=== PATIENT | male | born 1940 | race Caucasian/White ===

== ENCOUNTER 2017-06-15 17:09 | Emergency (ER) | payer MEDICARE, MEDICAID ==
[2017-06-15 17:47] VITALS: BP 103/78
--- NOTE | 2017-06-15 18:32 | UC ---
Skin Complaint HPI - HPI Summary HPI Summary: PT NOTICED AN IRRITATED SKIN LESION LEFT SHOULDER TODAY. WONDERS IF IT IS A TICK. FEEL WELL. NO FEVER, SOMERS, MUSCLE/JOINT PAIN. - History of Current Complaint Chief Complaint: UCSkin Time Seen by Provider: 06/15/17 18:17 Stated Complaint: TICK BITE Hx Obtained From: Patient Onset/Duration: Sudden Onset, Lasting Hours, Still Present Timing: Constant Onset Severity: Mild Current Severity: None Pain Intensity: 0 Pain Scale Used: 0-10 Numeric Location: Discrete - LEFT SHOULDER Character: Raised Aggravating: Touch Alleviating: Nothing Associated Signs & Symptoms: Positive: Negative - Allergy/Home Medications Allergies/Adverse Reactions: Allergies Allergy/AdvReac Type Severity Reaction Status Date / Time Prednisone AdvReac GI Upset Verified 06/15/17 17:36 Home Medications: Home Medications Misc. Devices [Nasal [place]urel Bottle 20Ml] 06/15/17 [History] Stomach Med 06/15/17 [History] Umeclidin/Vilant 62.5 MDI(NF) [ANORO 62.5/25 Ellipta DEVICE (NF)] 06/15/17 [ History] Review of Systems Constitutional: Negative Skin: Other - IRRITATED SPOT LEFT SHOULDER ENT: Negative Respiratory: Negative Cardiovascular: Negative Gastrointestinal: Negative All Other Systems Reviewed And Are Negative: Yes PMH/Surg Hx/FS Hx/Imm Hx Respiratory History: COPD Other Cancer History: LYMPHOMA - Surgical History Surgical History: Yes Surgery Procedure, Year, and Place: biopsy of throat and right bronch.,lymph nodes. T&A. colonoscopy ~3 months ago - Family History Family History: denies cardio vascular issues in family lineage - Social History Alcohol Use: None Substance Use Type: None Smoking Status (MU): Former Smoker Type: Cigarettes Amount Used/How Often: quite 40 yrs ago Length of Time of Smoking/Using Tobacco: 13 YRS Have You Smoked in the Last Year: No When Did the Patient Quit Smoking/Using Tobacco: 1970 Physical Exam Triage Information Reviewed: Yes Appearance: Well-Appearing, No Pain Distress, Well-Nourished Vital Signs: Initial Vital Signs Temp 98.2 F 06/15/17 17:39 Pulse 98 06/15/17 17:39 Resp 18 06/15/17 17:39 BP 103/78 06/15/17 17:39 Pulse Ox 92 06/15/17 17:39 Vital Signs Reviewed: Yes Eyes: Positive: Conjunctiva Clear ENT: Positive: Hearing grossly normal Neck: Positive: Supple Respiratory: Positive: No respiratory distress, No accessory muscle use Cardiovascular: Positive: Pulses Normal Abdomen Description: Positive: Soft Musculoskeletal: Positive: No Edema Neurological: Positive: Alert Psychological: Positive: Age Appropriate Behavior Skin: Positive: Other - INFLAMED ACTINIC KERATOSIS LEFT SHOULDER, FLAKING OFF Course/Dx - Diagnoses Provider Diagnoses: IRRITATED ACTINIC KERATOSIS Discharge - Discharge Plan Condition: Stable Disposition: HOME Patient Education Materials: Actinic Keratosis (ED) Referrals: Santos Cardenas MD [Primary Care Provider] - If Needed Additional Instructions: YOU DID NOT HAVE A TICK BITE. THE SPOT YOU FOUND WAS AN IRRITATED SKIN LESION THAT I PULLED OFF. 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 KEEP AN EYE ON THE AREA TO MAKE SURE IT DOES NOT BECOME INFECTED. SEEK FOLLOW-UP IF YOU DEVELOP SPREADING REDNESS OF THE SKIN, PURULENT DRAINAGE, FEVER, INCREASED PAIN OR ANY OTHER CONCERNING SYMPTOMS.
== END 2017-06-15 18:35 | disposition home or self-care (01) ==
LOC: UCEAST 17:09
DX: L57.0 Actinic keratosis (principal); Z87.891 Personal history of nicotine dependence
CPT/HCPCS: 99211; G0463

== ENCOUNTER 2019-04-19 17:10 | Emergency (ER) | payer MEDICARE, MEDICAID ==
[2019-04-19 17:29] VITALS: BP 126/83
--- NOTE | 2019-04-19 18:09 | UC ---
Skin Complaint HPI - HPI Summary HPI Summary: 78 yo male with COPD presents for evaluation of a red/warm face on day #3 of doxy for exacerbation of COPD currently on prednsione as well no fever no CP no sob - History of Current Complaint Chief Complaint: UCSkin Time Seen by Provider: 04/19/19 17:55 Stated Complaint: SKIN CONCERN Hx Obtained From: Patient Onset/Duration: Gradual Onset, Lasting Hours Timing: Constant Onset Severity: Mild Current Severity: Mild Pain Intensity: 0 Pain Scale Used: 0-10 Numeric Location: Face Character: Redness Aggravating Factor(s): Nothing Alleviating Factor(s): Nothing Associated Signs & Symptoms: Positive: Negative Related History: Recent change in medication - Allergy/Home Medications Allergies/Adverse Reactions: Allergies Allergy/AdvReac Type Severity Reaction Status Date / Time No Known Allergies Allergy Verified 04/19/19 17:30 Home Medications: Home Medications Montelukast Sodium TAB* [Singulair TAB*] 10 mg PO DAILY 04/19/19 [History Confirmed 04/19/19] Omeprazole 40 mg PO 04/19/19 [History] predniSONE TAB* [Deltasone 10 MG TAB*] 10 mg PO DAILY 04/19/19 [History Confirmed 04/19/19] PMH/Surg Hx/FS Hx/Imm Hx Previously Healthy: Yes Cardiovascular History: Hypertension Respiratory History: COPD, Bronchitis - Surgical History Surgical History: Yes Surgery Procedure, Year, and Place: biopsy of throat and right bronch.,lymph nodes. T&A. colonoscopy ~3 months ago - Family History Known Family History: Positive: Hypertension, Other Family History: denies cardio vascular issues in family lineage - Social History Alcohol Use: None Substance Use Type: None Smoking Status (MU): Former Smoker Type: Cigarettes Amount Used/How Often: quite 40 yrs ago Length of Time of Smoking/Using Tobacco: 13 YRS Have You Smoked in the Last Year: No When Did the Patient Quit Smoking/Using Tobacco: 1970 Review of Systems All Other Systems Reviewed And Are Negative: Yes Constitutional: Positive: Negative Skin: Positive: Negative Eyes: Positive: Negative ENT: Positive: Negative Respiratory: Positive: Cough Cardiovascular: Positive: Negative Gastrointestinal: Positive: Negative Genitourinary: Positive: Negative Motor: Positive: Negative Neurovascular: Positive: Negative Musculoskeletal: Positive: Negative Neurological: Positive: Negative Psychological: Positive: Negative Physical Exam Triage Information Reviewed: Yes Appearance: Well-Appearing, No Pain Distress, Well-Nourished Vital Signs: Initial Vital Signs Temp 99.2 F 04/19/19 17:23 Pulse 97 04/19/19 17:23 Resp 20 04/19/19 17:23 BP 126/83 04/19/19 17:23 Pulse Ox 97 04/19/19 17:23 Vital Signs Reviewed: Yes Eyes: Positive: Conjunctiva Clear ENT: Positive: Uvula midline. Negative: Hearing grossly normal - [place], Nasal congestion, Nasal drainage, Tonsillar swelling, Tonsillar exudate, Muffled voice , Hoarse voice, Sinus tenderness Neck: Positive: Supple, Nontender, No Lymphadenopathy Respiratory: Positive: Normal breath sounds, No respiratory distress, No accessory muscle use, Crackles - faint crackles both bases, Wheezing Cardiovascular: Positive: RRR, No Murmur Neurological: Positive: Alert Psychological Exam: Normal Skin Exam: Other - face appears sunburned Course/Dx - Diagnoses Provider Diagnosis: Phototoxic drug eruption Discharge - Sign-Out/Discharge Documenting (check all that apply): Patient Departure All imaging exams completed and their final reports reviewed: No Studies - Discharge Plan Condition: Stable Disposition: HOME Prescriptions: Amoxicillin PO (*) [Amoxicillin 875 MG (*)] 875 mg PO BID #10 tab Patient Education Materials: Photosensitivity (ED) Referrals: Santos Cardenas MD [Primary Care Provider] - 5 Days Additional Instructions: stop doxy begin amox continue pprednisone - Billing Disposition and Condition Condition: STABLE Disposition: Home
== END 2019-04-19 18:20 | disposition home or self-care (01) ==
LOC: UCCORT 17:10
DX: L27.0 Generalized skin eruption due to drugs and medicaments taken internally (principal); T36.4X5A Adverse effect of tetracyclines, initial encounter; I10 Essential (primary) hypertension; J44.9 Chronic obstructive pulmonary disease, unspecified; Z87.891 Personal history of nicotine dependence; Y92.9 Unspecified place or not applicable
CPT/HCPCS: 99212; G0463

== ENCOUNTER 2019-05-25 16:17 | Emergency (ER) | payer MEDICARE, MEDICAID ==
[2019-05-25 17:26] VITALS: BP 127/81
--- NOTE | 2019-05-25 17:51 | UC ---
Respiratory Complaint HPI - HPI Summary HPI Summary: 78-year-old male comes in with a chief complaint of cough and chest congestion with green sputum. Patient reports that he was admitted for pneumonia at the [facility] and discharged 2 weeks ago. He said he improved well is in the hospital. Tells me that the 2 days after he got out he started coughing again. Just recently the sputum is to return green. 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 T&A. colonoscopy ~3 months ago - Family History Known Family History: Positive: Hypertension, Other Family History: denies cardio vascular issues in family lineage - Social History Alcohol Use: None Substance Use Type: None Smoking Status (MU): Former Smoker Type: Cigarettes Amount Used/How Often: quite 40 yrs ago Length of Time of Smoking/Using Tobacco: 13 YRS Have You Smoked in the Last Year: No When Did the Patient Quit Smoking/Using Tobacco: 1969 Review of Systems All Other Systems Reviewed And Are Negative: Yes Constitutional: Positive: Negative Skin: Positive: Negative Eyes: Positive: Negative ENT: Positive: Nasal Discharge Respiratory: Positive: Cough, Other - SEE HPI Cardiovascular: Positive: Negative Gastrointestinal: Positive: Negative Genitourinary: Positive: Other - HAS [employer]HE[employer] Motor: Positive: Negative Neurovascular: Positive: Negative Musculoskeletal: Positive: Negative Neurological: Positive: Negative Psychological: Positive: Negative Is Patient Immunocompromised?: No Physical Exam Triage Information Reviewed: Yes Appearance: Well-Appearing, No Pain Distress, Well-Nourished Vital Signs: Initial Vital Signs Temp 97.8 F 05/25/19 17:21 Pulse 95 05/25/19 17:21 Resp 24 05/25/19 17:21 BP 127/81 05/25/19 17:21 Pulse Ox 95 05/25/19 17:21 Vital Signs Reviewed: Yes Eye Exam: Normal Eyes: Positive: Conjunctiva Clear ENT: Positive: Pharyngeal erythema, TMs normal Neck: Positive: Supple Respiratory: Positive: Lungs clear, Normal breath sounds, No respiratory distress Cardiovascular: Positive: RRR Musculoskeletal Exam: Normal Musculoskeletal: Positive: Strength Intact, ROM Intact, No Edema Neurological Exam: Normal Neurological: Positive: Alert, Muscle Tone Normal Psychological Exam: Normal Psychological: Positive: Age Appropriate Behavior Skin Exam: Normal Respiratory Course/Dx - Differential Dx/Diagnosis Provider Diagnosis: Bronchitis Discharge - Sign-Out/Discharge Documenting (check all that apply): Patient Departure All imaging exams completed and their final reports reviewed: No Studies - Discharge Plan Condition: Stable Disposition: HOME Prescriptions: Levofloxacin TAB* [Levaquin TAB*] 750 mg PO DAILY #5 tab Patient Education Materials: Acute Bronchitis (ED) Referrals: Santos Cardenas MD [Primary Care Provider] - Additional Instructions: FOLLOW UP WITH YOUR DOCTOR. START THE ANTIBIOTIC LEVAQUIN 750MG DAILY. TAKE IT FOR 5 DAYS. WHEN YOU ARE TAKING THE LEVAQUIN, STOP THE ANTIBIOTIC BACTRIM WHICH YOU ARE ON FOR YOUR PROSTATE. SEE YOUR DOCTOR WITHIN THE NEXT 5 DAYS. GO TO THE EMERGENCY DEPARTMENT IF WORSE; FEVER, SHORTNESS OF BREATH, YOU FEEL ILL OR ANY QUESTIONS OR CONCERNS. - Billing Disposition and Condition Condition: STABLE Disposition: Home
== END 2019-05-25 18:09 | disposition home or self-care (01) ==
LOC: UCCORT 16:17
DX: J40 Bronchitis, not specified as acute or chronic (principal); Z87.891 Personal history of nicotine dependence
CPT/HCPCS: 99212; G0463